=== PATIENT | female | born 1970 | race Hispanic/Latino ===

== ENCOUNTER 2018-06-27 14:23 | Emergency (ER) | payer SELFPAY ==
[~2018-06-27] VITALS: Ht 152.4 cm; Wt 90.7 kg
[~2018-06-27 14:23] MED LIST: ALLEGRA
--- OUTSIDE RECORDS SUMMARY | 2018-06-27 14:25 | XMS REPORT ---
Author Author [facility] Address Unknown Phone Unavailable Care Team Providers Care Child Welfare Caseworker Name Role Phone Unavailable Unavailable Payers Payer Name Policy Type Policy Number Effective Date Expiration Date Problems This patient has no known problems. Allergies, Adverse Reactions, Alerts Allergy Name Allergy Type Status Severity Reaction(s) Onset Date Inactive Date Treating Clinician Comments No Known Allergies DA Active U 2018-06-26 00:00:00 No Known Contrast Allergies DA Active U 2005-11-04 00:00:00 No Known Drug Allergies DA Active U 2005-11-04 00:00:00 No Known Food Allergies DA Active U 2005-11-04 00:00:00 No Known Other Allergies DA Active U 2005-11-04 00:00:00 No Known Drug Intolerances DA Active U 2001-06-26 00:00:00 Medications This patient has no known medications.
[2018-06-27] MEDS ORDERED: ULTRAM50 MG PO (17:38)
[2018-06-27] MEDS ORDERED: KETOROLAC TROME10 MG PO (17:38)
[2018-06-27] MEDS ORDERED: BACTRIM DS TAB1 EACH PO (17:38)
== END 2018-06-27 15:40 | disposition left against medical advice (07) ==
LOC: ER 14:23
DX: R10.11 Right upper quadrant pain (principal)

== ENCOUNTER 2018-06-27 16:01 | Emergency (ER) | payer OTHER ==
[~2018-06-27] VITALS: Ht 149.9 cm; Wt 130.6 kg
[2018-06-27] MEDS ORDERED: KETOROLAC TROMETHAMINE 30 MG/ML VIAL IV STA (16:23)
[2018-06-27] MEDS ORDERED: SODIUM CHLORIDE 0.9% 1000ML 1,000 ML IV SCH (16:30)
[2018-06-27] MEDS ORDERED: FENTANYL CITRATE/PF 100MCG/2 ML INJ IV ONE (16:30)
--- NOTE | 2018-06-27 17:19 | NUR ---
[facility]a givens in [facility] - 06/27/18 at 1719 by GERSON Visual Acuity completed: L Eye R Eye Both Eyes:
[2018-06-27] MEDS ORDERED: ULTRAM50 MG PO (17:38)
[2018-06-27] MEDS ORDERED: KETOROLAC TROME10 MG PO (17:38)
[2018-06-27] MEDS ORDERED: BACTRIM DS TAB1 EACH PO (17:38)
--- NOTE | 2018-06-27 17:43 | NUR ---
Fentanyl not administered. Pt states pain level is a 2/10. Fluids and Toradol administered as ordered.
--- NOTE | 2018-06-27 18:00 | Diagnostic Imaging Report ---
EXAM: Right Upper Quadrant Ultrasound INDICATION: Right upper quadrant pain. COMPARISON: None. TECHNIQUE: Transverse and longitudinal images of the right upper abdomen were obtained. FINDINGS: Examination somewhat limited due to shadowing from overlying bowel gas. Liver: Size: 14.6 cm in the right midclavicular line, normal Appearance: Increased echogenicity, smooth contour Mass: No focal masses Gallbladder: Stones/Sludge: There is a large calculus within the gallbladder lumen. There is also nonshadowing echogenic material which may represent sludge or floating gallstones. Wall: 0.2 cm Appearance: No wall thickening, pericholecystic fluid or hydrops. Sonographic Gonzalez's Sign: Negative Bile Ducts: Intrahepatic Ducts: No dilatation Extrahepatic Ducts: Common bile duct measures 0.5 cm, no dilatation Pancreas: Not well visualized due to shadowing from overlying bowel gas. Kidneys: Length: Right 9.9 cm Echogenicity: Normal Collecting System: No hydronephrosis Stone: None Cyst/Mass: None Vessels: Aorta: Visualized portions are normal Inferior Vena Cava: Visualized portions are normal Main Portal Vein: 1.1 cm, normal size with hepatopetal flow. Free Fluid: No ascites or pleural effusion IMPRESSION: 1. Cholelithiasis and gallbladder sludge. No biliary dilatation. Signed by: Dr. Siobhan Caba M.D. on 06/27/2018 5:56 PM
[2018-06-27 18:11] VITALS: BP 199/113
== END 2018-06-27 18:39 | disposition home or self-care (01) ==
LOC: FSED 16:01
DX: R10.11 Right upper quadrant pain (principal); N30.90 Cystitis, unspecified without hematuria; K80.20 Calculus of gallbladder without cholecystitis without obstruction
CPT/HCPCS: 76705; 80053; 81003; 81025; 85025; 93005; 99284; J1885; J7030

== ENCOUNTER 2018-07-19 02:18 | Emergency (ER) | payer OTHER ==
[~2018-07-19] VITALS: Ht 149.9 cm; Wt 130.6 kg
[~2018-07-19 02:18] MED LIST changes: +BACTRIM DS TAB1 EACH PO; +KETOROLAC TROME10 MG PO; +ULTRAM50 MG PO
[2018-07-19] MEDS ORDERED: KETOROLAC TROMETHAMINE 30 MG/ML VIAL IV STA (02:35)
[2018-07-19] MEDS ORDERED: ONDANSETRON HCL INJ 2MG/ML 2ML 2 MG/ML VIAL IV STA (02:35)
[2018-07-19] MEDS ORDERED: SODIUM CHLORIDE 0.9% 1000ML 1,000 ML IV ONE (02:45)
[2018-07-19] MEDS ORDERED: MORPHINE SULFATE 5 MG/ML VIAL IV ONE (03:00)
--- NOTE | 2018-07-19 04:07 | Diagnostic Imaging Report ---
EXAM: CT ABD/PEL WITH CONTRAST-HOPD DATE: 07/19/2018 12:00 AM INDICATION: Epigastric pain COMPARISON: None TECHNIQUE: The abdomen and pelvis were scanned using a multidetector helical scanner. Coronal and sagittal reformations were obtained. CT low dose techniques were utilized, as applicable. IV Contrast: 100 ml Isovue 300/370 FINDINGS: LOWER THORAX: No consolidations LIVER/BILIARY: No masses. No ductal dilatation. GALLBLADDER: Cholelithiasis, with large lamellated stone near the neck. Otherwise unremarkable. A SPLEEN: Unremarkable PANCREAS: Unremarkable ADRENALS: No nodules KIDNEYS: No suspicious renal masses. No hydronephrosis. GI TRACT: Small hiatal hernia. No wall thickening or evidence of obstruction. VESSELS: Unremarkable PERITONEUM/RETROPERITONEUM: No free air or fluid LYMPH NODES: No lymphadenopathy REPRODUCTIVE ORGANS/BLADDER: Unremarkable SOFT TISSUES: No acute findings BONES: No suspicious bone lesions. IMPRESSION: 1. No acute abnormality. 2. Small hiatal hernia. 3. Cholelithiasis, but large stone in the neck, but no CT evidence of acute cholecystitis. Signed by: Dr Mary Foley MD on 07/19/2018 4:03 AM
[2018-07-20] MEDS ORDERED: TYLENOL # 31 EA PO (05:32)
[2018-07-20] MEDS ORDERED: ONDANSETRON HCL4 MG PO (05:32)
[2018-07-20] MEDS ORDERED: D-AMPHETAMINE PO (05:32)
[2018-07-20] MEDS ORDERED: LISINOPRIL10 MG PO (05:32)
[2018-07-20] MEDS ORDERED: ASPIRIN EC81 MG PO (05:32)
== END 2018-07-19 04:32 | disposition home or self-care (01) ==
LOC: FSED 02:18
DX: R10.11 Right upper quadrant pain (principal); R11.2 Nausea with vomiting, unspecified; K80.70 Calculus of gallbladder and bile duct without cholecystitis without obstruction
CPT/HCPCS: 74177; 80053; 81003; 81025; 85025; 99284; J7030

== ENCOUNTER 2018-07-20 03:18 | Inpatient (IN) | payer OTHER ==
[~2018-07-20] VITALS: Ht 149.9 cm; Wt 130.6 kg
[2018-07-20] MEDS ORDERED: ONDANSETRON HCL INJ 2MG/ML 2ML 2 MG/ML VIAL IV STA ×2 (03:27→04:11)
[2018-07-20] MEDS ORDERED: SODIUM CHLORIDE 0.9% 1000ML 1,000 ML IV ONE ×3 (03:30→05:00)
[2018-07-20] MEDS ORDERED: DICYCLOMINE HCL 20 MG/2 ML VIAL IM ONE (03:30)
[2018-07-20] MEDS ORDERED: HYDROMORPHONE 2MG/ML 2 MG/ML ML IV ONE (03:30)
[2018-07-20 03:55] LABS: BASOPHILS # (AUTO) 0.1 (0.0-0.1); BASOPHILS % 0.3 % (0.0-1.0); EOSINOPHILS % 0.2 % (0.0-6.0); HEMATOCRIT 34.1 % (34.2-44.1); HEMOGLOBIN 9.5 g/dL (12.0-16.0); LYMPHOCYTES # (AUTO) 3.2 (1.0-3.2); LYMPHOCYTES % 19.9 % (18.0-39.1); MEAN CORPUSCULAR HEMOGLOBIN 17.9 pg (28-32); MEAN CORPUSCULAR HGB CONC 27.9 g/dL (31-35); MEAN CORPUSCULAR VOLUME 64.2 fL (81-99); MONOCYTES # (AUTO) 0.6 (0.2-0.8); MONOCYTES % 3.8 % (4.4-11.3); NEUTROPHILS # (AUTO) 12.2 (2.1-6.9); NEUTROPHILS % 75.4 % (38.7-80.0); PLATELET COUNT 463 x10e3/uL (140-360); RED BLOOD COUNT 5.31 x10e6/uL (3.6-5.1); RED CELL DISTRIBUTION WIDTH 18.8 % (11.7-14.4)
[2018-07-20 04:10] LABS: ALANINE AMINOTRANSFERASE 20 IU/L (0-55); ALBUMIN 3.5 g/dL (3.5-5.0); ALBUMIN/GLOBULIN RATIO 0.8 (0.8-2.0); ALKALINE PHOSPHATASE 123 IU/L (40-150); AMYLASE 67 U/L (25-125); ANION GAP 14.8 mmol/L (8-16); BLOOD UREA NITROGEN 7 mg/dL (7-26); BUN/CREATININE RATIO 9 (6-25); CARBON DIOXIDE 20 mmol/L (22-29); CHLORIDE 100 mmol/L (98-107); CREATINE KINASE 87 IU/L (29-168); EST GLOMERULAR FILTRATION RATE > 60 ML/MIN (60-); GLUCOSE 186 mg/dL (74-118); LIPASE 18 U/L (8-78); POTASSIUM 3.8 mmol/L (3.5-5.1); SODIUM 131 mmol/L (136-145)
[2018-07-20] MEDS ORDERED: MORPHINE SULFATE INJ 4 MG/ML INJ 1ML IV ONE (04:15)
[2018-07-20 04:26] LABS: BACTERIA,URINE MANY /HPF; BILIRUBIN,URINE NEGATIVE (NEGATIVE); CLARITY,URINE CLEAR (CLEAR); COLOR,URINE YELLOW (YELLOW); EPITHELIAL CELLS,URINE FEW /LPF; KETONES,URINE 2+ (NEGATIVE); LEUKOCYTE ESTERASE ,URINE 1+ (NEGATIVE); NITRITE,URINE NEGATIVE (NEGATIVE); PROTEIN,URINE DIPSTICK TRACE (NEGATIVE); URINE UROBILINOGEN 4 mg/dL (0.2 - 1); WBC,URINE (MAN) 21-50 /HPF (0-5)
[2018-07-20 04:27] LABS: MUCUS,URINE FEW (RARE)
[2018-07-20] MEDS ORDERED: SODIUM CHLORIDE 0.9% 1000ML 1,000 ML ONE (04:54)
[2018-07-20] MEDS ORDERED: HYDRALAZINE HCL 20 MG/ML VIAL IV PRN (05:00)
[2018-07-20] MEDS ORDERED: TYLENOL # 31 EA PO (05:32)
[2018-07-20] MEDS ORDERED: D-AMPHETAMINE PO (05:32)
[2018-07-20] MEDS ORDERED: ASPIRIN EC81 MG PO (05:32)
[2018-07-20] MEDS ORDERED: ONDANSETRON HCL4 MG PO (05:32)
[2018-07-20] MEDS ORDERED: LISINOPRIL10 MG PO (05:32)
[2018-07-20] MEDS ORDERED: PIPER-TAZ 3.375 GM / NS 50ML IV SCH ×2 (06:00→18:00)
[2018-07-20 06:08] VITALS: BP 154/84
[2018-07-20] MEDS: SODIUM CHLORIDE 0.9% 1000ML 1,000 ML IV SCH ×3 (07:00→21:20)
[2018-07-20 07:56] LABS: ANISOCYTOSIS SLIGHT; HYPOCHROMASIA MODERATE; PLATELET ESTIMATE SLIGHTLY INCREASED; PLATELET MORPHOLOGY COMMENT FEW LARGE; RBC MORPHOLOGY COMMENT NORMAL
[2018-07-20] MEDS: HYDROMORPHONE 2MG/ML 2 MG/ML ML IV PRN ×3 (08:00→19:36)
[2018-07-20] MEDS: ONDANSETRON HCL INJ 2MG/ML 2ML 2 MG/ML VIAL IV PRN ×3 (08:00→19:36)
[2018-07-20 08:02] VITALS: BP 158/87
[2018-07-20 08:11] VITALS: BP 158/87
[2018-07-20 12:08] VITALS: BP 148/89
--- NOTE | 2018-07-20 12:14 | NUR ---
pt off unit for sx at this time . consent has been signed
[2018-07-20] MEDS ORDERED: BUPIVACAINE 0.25%/EPI 30ML SDV INJ ONE (13:24)
[2018-07-20] MEDS: PANTOPRAZOLE 40 MG 10ML VIAL IV SCH (16:00)
--- NOTE | 2018-07-20 16:17 | Operative Report ---
DATE OF PROCEDURE: July 20, 2018 PREOPERATIVE DIAGNOSIS: Acute cholecystitis and cholelithiasis with gallbladder hydrops. POSTOPERATIVE DIAGNOSIS: Acute cholecystitis and cholelithiasis with gallbladder hydrops. OPERATION PERFORMED: Laparoscopic cholecystectomy. EXECUTIVE OFFICE MANAGER: Dr. Jones Dumont ANESTHESIA: General. COMPLICATIONS: None. ESTIMATED BLOOD LOSS: Minimal. DESCRIPTION OF PROCEDURE: With the patient lying in bed in the supine position under good general endotracheal anesthesia, the abdomen was prepped with Betadine solution and draped in the usual manner. A Veress needle was introduced into the right upper quadrant and pneumoperitoneum was established without any difficulty. A 5-mm trocar was placed in the right subcostal region and a 5 mm video laparoscope was placed into the intra-abdominal cavity. Under direct vision, an 11-mm trocar was placed in the umbilicus and a 10 mm video laparoscope was placed into the intra-abdominal cavity. Two more 5-mm trocars were placed in the right subcostal region. The patient at this point was found to have an acutely inflamed, thick-walled, tense gallbladder with hydrops with a large stone impacted at the neck of the gallbladder. The omentum and the duodenum was stuck to the neck of the gallbladder. All of this was slowly and carefully . An extra 5-mm trocar was then used to retract the redundant transverse colon. The perineum overlying the neck of the gallbladder was then opened and the cystic duct was identified. The cystic duct was rather short and it was doubly clipped and divided. The cystic artery was similarly doubly clipped and divided. The gallbladder was then slowly and carefully taken off of the liver bed using the cautery scissors. The entire liver bed was thick-walled and edematous representing both acute and chronic cholecystitis. The gallbladder was totally and completely removed off of the liver bed and hemostasis was ascertained. The gallbladder was then placed in a pouch and removed through the umbilical incision. Video laparoscopy was then again carried out. The liver bed was found to perfectly dry. All of the excess fluid was aspirated. The pneumoperitoneum was evacuated and all the trocars were removed under direct vision. The midline fascia at the umbilicus was then closed with a figure-of-8 of 0 Vicryl. All layers were infiltrated on the way out with a solution of 0.25% Marcaine. Subcutaneous tissue was approximated with 3-0 Vicryl and the skin was closed with subcuticular 5-0 Vicryl. Benzoin, Steri-Strips and Band-Aids were applied. The sponge, lap and needle count was correct. Patient tolerated the procedure well and returned to the recovery room in stable condition. Job#: [id number] FRANTZ
--- NOTE | 2018-07-20 16:19 | NUR ---
RECEIVED REPORT FROM [facility] IN PACU AT THIS TIME . AWAITING FOR PT TO COME TO FLOOR. PT HAD A LAP YAZMIN
[2018-07-20 16:35] VITALS: BP 98/57
--- NOTE | 2018-07-20 16:44 | NUR ---
PT BACK FROM SX [id number]. PT IS IN NO S/S OF DISTRESS. DENIES PAIN. PT ABD IS CLEAN , 5 TROCHAR SITES PRESENT DRY AND INTACT. WILL CONTINUE TO MONITOR
[2018-07-20 20:00] VITALS: BP_SYST 123; BP_SYST 128; BP_DIAS 58; BP_DIAS 68
[2018-07-20] MEDS ORDERED: MIDAZOLAM HCL 2 MG/2 ML VIAL ONE (20:13)
[2018-07-20] MEDS ORDERED: FENTANYL CITRATE/PF 100MCG/2 ML INJ ONE (20:13)
[2018-07-20] MEDS ORDERED: ACETAMINOPHEN 1000 MG/100 ML IV ONE (20:21)
[2018-07-20] MEDS ORDERED: KETOROLAC TROMETHAMINE 30 MG/ML VIAL ONE (20:21)
[2018-07-20] MEDS ORDERED: PROPOFOL IV EMULSION 10 MG/ML 20 ML VIAL ONE (20:21)
[2018-07-20] MEDS ORDERED: ROCURONIUM BROMIDE 10 MG/ML 5ML VIAL ONE (20:21)
[2018-07-20] MEDS ORDERED: NEOSTIGMINE 5 MG/5ML SYR ONE (20:21)
[2018-07-20] MEDS ORDERED: LIDOCAINE HCL 2% LOCAL INJ 5 ML SDV VIAL INJ ONE (20:21)
[2018-07-20] MEDS ORDERED: SEVOFLURANE INHAL SOLN 250 ML PEN BTL ONE (20:21)
[2018-07-20] MEDS ORDERED: GLYCOPYRROLATE INJ 1MG/ 5 ML SYR ONE (20:21)
[2018-07-20] MEDS ORDERED: ONDANSETRON HCL INJ 2MG/ML 2ML 2 MG/ML VIAL ONE (20:21)
[2018-07-20] MEDS ORDERED: PHENYLEPHRINE HCL 1% 10 MG/ML VIAL ONE (20:21)
[2018-07-20] MEDS: HYDROCODONE/APAP 7.5MG-325MG 1 EA TAB PO PRN (23:33)
[2018-07-21] VITALS (7 sets, daily range): BP systolic 108–154; BP diastolic 58–83
[2018-07-21] MEDS: PIPER-TAZ 3.375 GM / NS 50ML IV SCH ×3 (00:30→16:14)
[2018-07-21] MEDS: ONDANSETRON HCL INJ 2MG/ML 2ML 2 MG/ML VIAL IV PRN ×3 (00:37→15:40)
[2018-07-21] MEDS: HYDROMORPHONE 2MG/ML 2 MG/ML ML IV PRN ×4 (00:37→15:40)
[2018-07-21 05:41] LABS: ALANINE AMINOTRANSFERASE 37 IU/L (0-55); ALBUMIN 2.7 g/dL (3.5-5.0); ALBUMIN/GLOBULIN RATIO 0.7 (0.8-2.0); ALKALINE PHOSPHATASE 103 IU/L (40-150); AMYLASE 25 U/L (25-125); ANION GAP 11.6 mmol/L (8-16); BLOOD UREA NITROGEN 8 mg/dL (7-26); BUN/CREATININE RATIO 9 (6-25); CALCIUM 8.5 mg/dL (8.4-10.2); CARBON DIOXIDE 23 mmol/L (22-29); CHLORIDE 104 mmol/L (98-107); CREATININE, SERUM 0.86 mg/dL (0.57-1.11); EST GLOMERULAR FILTRATION RATE > 60 ML/MIN (60-); GLUCOSE 142 mg/dL (74-118); LIPASE 5 U/L (8-78); POTASSIUM 4.6 mmol/L (3.5-5.1); SODIUM 134 mmol/L (136-145)
[2018-07-21 05:44] LABS: BASOPHILS # (AUTO) 0.1 (0.0-0.1); BASOPHILS % 0.3 % (0.0-1.0); EOSINOPHILS % 0.1 % (0.0-6.0); HEMATOCRIT 28.6 % (34.2-44.1); LYMPHOCYTES # (AUTO) 2.2 (1.0-3.2); LYMPHOCYTES % 14.5 % (18.0-39.1); MEAN CORPUSCULAR VOLUME 64.4 fL (81-99); MONOCYTES # (AUTO) 0.7 (0.2-0.8); MONOCYTES % 4.8 % (4.4-11.3); NEUTROPHILS # (AUTO) 12.2 (2.1-6.9); NEUTROPHILS % 79.5 % (38.7-80.0); PLATELET COUNT 346 x10e3/uL (140-360); RED BLOOD COUNT 4.44 x10e6/uL (3.6-5.1)
[2018-07-21] MEDS: SODIUM CHLORIDE 0.9% 1000ML 1,000 ML IV SCH ×2 (05:50→15:40)
[2018-07-21] MEDS: HYDROCODONE/APAP 7.5MG-325MG 1 EA TAB PO PRN ×2 (07:57→18:00)
[2018-07-21 08:52] LABS: ANISOCYTOSIS SLIGHT; PLATELET ESTIMATE ADEQUATE; PLATELET MORPHOLOGY COMMENT NORMAL; RBC MORPHOLOGY COMMENT ABNORMAL
[2018-07-21 08:56] LABS: HYPOCHROMASIA MODERATE
[2018-07-21] MEDS ORDERED: LISINOPRIL 10 MG TAB PO SCH (09:00)
--- NOTE | 2018-07-21 09:52 | NUR ---
Patient in bed, encouraged to get up and ambulate and stated will get up later as still in some pains, pain meds have been given x2 and will monitor.
[2018-07-21] MEDS: PANTOPRAZOLE 40 MG 10ML VIAL IV SCH (15:15)
--- NOTE | 2018-07-21 17:47 | NUR ---
Rounds by surgeon and orders to discharge patient. Tolerated clear liquid diet, no N/V reported, has been OOB ambulating today and passed gas. Discharge instructions given to patient, contacts provided for f/u appointment, dietary restrictions and infection control. IV line removed with cath tip in place and dressing applied.
== END 2018-07-21 18:07 | disposition home or self-care (01) | DRG 418 ==
LOC: ER 03:18 → ERHOLD 05:00 → MED/SURG 06:28
PROVIDERS: ADMIT Surgery; ATTEND Surgery
PROC: 0FT44ZZ Resection of Gallbladder, Percutaneous Endoscopic Approach (ICD-10-PCS; principal; 2018-07-20 13:30)
DX: K80.00 Calculus of gallbladder with acute cholecystitis without obstruction (principal); Z68.43 Body mass index [BMI] 50.0-59.9, adult; E66.01 Morbid (severe) obesity due to excess calories; K21.9 Gastro-esophageal reflux disease without esophagitis
CPT/HCPCS: 36415; 80053; 81001; 82150; 82550; 82553; 82948; 83690; 84484; 84702; 85025; 88304; 93005; 96372; 96374; 99284; C1766; J0500; J1885; J2001; J2250; J2370; J2405; J2543; J7030

== ENCOUNTER 2020-04-19 04:07 | Emergency (ER) | payer OTHER ==
[~2020-04-19] VITALS: Ht 149.9 cm; Wt 73.5 kg
[~2020-04-19 04:07] MED LIST changes: +ASPIRIN EC81 MG PO; +D-AMPHETAMINE PO; +LISINOPRIL10 MG PO; +ONDANSETRON HCL4 MG PO; +TYLENOL # 31 EA PO
--- NOTE | 2020-04-19 05:21 | Diagnostic Imaging Report ---
KNEE RIGHT 3VW RT - 3 views HISTORY: Pain. Trauma COMPARISON: None available. FINDINGS: Tiny ossific density at the tibial spine. Otherwise, no acute displaced fracture or dislocation. No joint effusion. IMPRESSION: Tiny ossific density at the medial tibial spine may represent an osteophyte or sequelae of old trauma, rather than evidence of an avulsive ligamentous injury given lack of suprapatellar effusion. MRI would be helpful if there is persistent clinical concern. Otherwise, no acute displaced fracture or dislocation. Signed by: Natan Duncan MD on 04/19/2020 5:18 AM
[2020-04-19] MEDS ORDERED: PREDNISONE20 MG PO (05:45)
--- NOTE | 2020-04-19 05:46 | Emergency Department Note ---
History of Present Illnes History of Present Illness Chief Complaint: RGT KNEE PAIN S/P FALL OFF A LADDER History of Present Illness This is a 49 year old female. was doing well prior to this. Historian: Patient Arrival Mode: Car History limited by: condition of the patient (normal) [employer] Support Specialist Required: No Onset (how long ago): hour(s) (12) Location: see above Quality: sharp Radiation: Reports non-radiation Severity: moderate Onset quality: sudden Duration (how long): hour(s) (12) Timing of current episode: constant Progression: worsening Chronicity: new Context: Reports trauma/injury Relieving factors: rest Exacerbating factors: movement Associated symptoms: Reports denies other symptoms Treatments prior to arrival: none Past Medical/Family History Physician Review I have reviewed the patient's past medical and family history. Any updates have been documented here. Past Medical History Recent Fever: No Clinical Suspicion of Infectio: No New/Unexplained Change in Ment: No Past Medical History: Hypertension Other Medical History: PRE-ECLAMPSIA GERD SEASONAL/ENVIRONMENTAL ALLERGIES Past Surgical History: , Bariatric Surgery Other Surgery: Social History Smoking Cessation: Never Smoker Counseling Performed: No Alcohol Use: None Any Illegal Drug Use: No Other Last Tetanus: unk Any Pre-Existing Lines (PICC,: No Review of Systems Review of Systems Constitutional: Reports no symptoms EENTM: Reports no symptoms Cardiovascular: Reports no symptoms Respiratory: Reports no symptoms Gastrointestinal: Reports no symptoms Genitourinary: Reports no symptoms Musculoskeletal: Reports as per HPI Integumentary: Reports no symptoms Neurological: Reports no symptoms Psychological: Reports no symptoms Endocrine: Reports no symptoms Hematological/Lymphatic: Reports no symptoms Review of other systems: All other systems negative Physical Exam Related Data Allergies: Coded Allergies: No Known Allergies (Unverified , 12/05/14) Triage Vital Signs Vital Signs Date Time Temp Pulse Resp B/P (MAP) Pulse Ox O2 Delivery O2 Flow Rate FiO2 04/19/20 04:20 98.0 110 18 160/98 100 Room Air Vital signs reviewed: Yes Physical Exam CONSTITUTIONAL Constitutional: Present well-developed, Present well-nourished HENT HENT: Present normocephalic, Present atraumatic, Present oropharynx clear/moist, Present nose normal HENT L/R: Present left ext ear normal, Present right ext ear normal EYES Eyes: Reports PERRL, Reports conjunctivae normal NECK Neck: Present ROM normal PULMONARY Pulmonary: Present effort normal, Present breath sounds normal CARDIOVASCULAR Cardiovascular: Present regular rhythm, Present heart sounds normal, Present capillary refill normal, Present normal rate GASTROINTESTINAL Abdominal: Present soft, Present nontender, Present bowel sounds normal GENITOURINARY Genitourinary: Present exam deferred SKIN Skin: Present warm, Present dry MUSCULOSKELETAL Musculoskeletal: Present ROM normal, Present tenderness (rgt knee/ +nvi), Present swelling NEUROLOGICAL Neurological: Present alert, Present oriented x 3, Present no gross motor or sensory deficits PSYCHOLOGICAL Psychological: Present mood/affect normal, Present judgement normal Results Imaging Imaging results reviewed: Yes Impressions [place] [address] Patient Name: KYLAH WRIGHT MR #: [id number] : 1970 Age/Sex: 49/F Req #: [id number] Adm Physician: Ordered by: BETITO HSIEH Report #: [id number] Location: [facility] Room/Bed: ____ Procedure: [id number] HOPD/KNEE 3VW RT - HOPD Exam Date: 04/19/20 Exam Time: 0444 REPORT STATUS: Signed KNEE RIGHT 3VW RT - 3 views HISTORY: Pain. Trauma COMPARISON: None available. FINDINGS: Tiny ossific density at the tibial spine. Otherwise, no acute displaced fracture or dislocation. No joint effusion. IMPRESSION: Tiny ossific density at the medial tibial spine may represent an osteophyte or sequelae of old trauma, rather than evidence of an avulsive ligamentous injury given lack of suprapatellar effusion. MRI would be helpful if there is persistent clinical concern. Otherwise, no acute displaced fracture or dislocation. Signed by: Tata Biggs MD on 04/19/2020 5:18 AM Dictated By: TATA BIGGS MD 7 Transcribed By: ARCADIO on 04/19/20517 COPY TO: BETITO HSIEH~ Assessment & Plan Medical Decision Making MDM see below Assessment & Plan Final Impression: (1) Knee sprain Depart Disposition: HOME, SELF-CARE Last Vital Signs Date Time Temp Pulse Resp B/P (MAP) Pulse Ox O2 Delivery O2 Flow Rate FiO2 04/19/20 04:20 98.0 110 18 160/98 100 Room Air Home Meds Active Scripts Prednisone (PREDNISONE) 20 Mg Tab, 60 MG PO DAILY PRN for MODERATE PAIN (4-6), #15 TAB TAKE ALL 3 20 MG PILLS AT ONCE Prov:BETITO HSIEH 04/19/20 Reported Medications [D-Amphetamine] No Conflict Check, 20 MG PO TID 07/20/18 Aspirin (ASPIRIN EC) 81 Mg Tablet.dr, 81 MG PO DAILY 07/20/18 Lisinopril (LISINOPRIL) 10 Mg Tablet, 10 MG PO DAILY 07/20/18 Ondansetron Hcl (ONDANSETRON HCL) 4 Mg Tablet, 4 MG PO Q6H PRN for NAUSEA 07/20/18 Acetaminophen/Codeine* (TYLENOL # 3*) 1 Ea Tab, 1 TAB PO Q6H PRN for PAIN 07/20/18 BETITO HSIEH Apr 19, 2020 05:45
--- OUTSIDE RECORDS SUMMARY | 2020-04-24 18:19 | XMS REPORT | Continuity of Care Document ---
Author Author [facility] t Organization [facility] Address [address] [place] [address] Phone Unavailable Care Team Providers Care Unstacker Name Role Phone NO, PCP PCP Unavailable Yesi HSIEH Attphys Unavailable Maximilian STEARNS Attphys Unavailable Judie JOSÉ Attphys Unavailable Payers Payer Name Policy Type Policy Number Effective Date Expiration Date S ource Problems Condition Name Condition Details Condition Category Status Onset Date Resolution Date Last Treatment Date Treating Clinician Comments Source Allergic reaction Allergic reaction Problem Active [facility] Cholecystitis Cholecystitis Problem Active [facility] Urinary tract infection UTI (urinary tract infection) Problem Active [facility] Allergies, Adverse Reactions, Alerts Allergy Name Allergy Type Status Severity Reaction(s) Onset Date Inacti ve Date Treating Clinician Comments Source No Known Allergies DA Active U 2018-06-26 00:00:00 [facility] No Known Contrast Allergies DA Active U 2005-11-04 00:00: 00 [facility] No Known Drug Allergies DA Active U 2005-11-04 00:00:00 [facility] No Known Food Allergies DA Active U 2005-11-04 00:00:00 [facility] No Known Other Allergies DA Active U 2005-11-04 00:00:00 [facility] No Known Drug Intolerances DA Active U 2001-06-26 00:00:0 0 [facility] Medications Ordered Medication Name Filled Medication Name Start Date Stop Da te Current Medication? Ordering Clinician Indication Dosage Frequency Signature (SIG) Comments Components Source Ketorolac Tromethamine (Toradol) 10 Mg Tablet, 10 Mg O ral Ketorolac Tromethamine (Toradol) 10 Mg Tablet, 10 Mg Oral 2018-06-27 00:00:2018-07-20 00:00:00 Sury José Md 10 Every 8 Hours for Pain [facility] Sulfamethoxazole/Trimethoprim (Bactrim Ds Tablet) 1 Ea ch Tablet, 1 Each Oral Sulfamethoxazole/Trimethoprim (Bactrim Ds Tablet) 1 Each Tablet, 1 Each Oral 2018-06-27 00:00:00 2018-07-20 00:00:00 Sury José Md 1 Twice A Day [facility] Tramadol Hcl (Ultram) 50 Mg Tablet, 50 Mg Oral Tramado l Hcl (Ultram) 50 Mg Tablet, 50 Mg Oral 2018-06-27 00:00:2018-07-20 00:00:00 No Frank José Md 50 Every 6 Hours as needed for Abdominal Pa in [facility] Acetaminophen/Codeine Phosphate (Tylenol # 3*) 1 Ea Ta b Acetaminophen/Codeine Phosphate (Tylenol # 3*) 1 Ea Tab Yes 1 Every 6 Hours as needed for Pain [facility] Aspirin (Aspirin Ec) 81 Mg Tablet. Aspirin (Aspirin Ec) 81 Mg Tab let. Yes 81 Daily [facility] D-Amphetamine D-Amphetamine Yes 20 Three Times A Day [facility] Lisinopril 10 Mg Tablet Lisinopril 10 Mg Tablet Yes 10 Daily [facility] Ondansetron Hcl 4 Mg Tablet Ondansetron Hcl 4 Mg Tablet Yes 4 Every 6 Hours as needed for Nausea [facility] Naya , Unknown Dose Naya , Unknown Dose 2018-07-20 00:00:00 No Daily [facility] Procedures Procedure Date / Time Performed Performing Clinician Terrence e Laparoscopic cholecystectomy 2018-07-20 00:00:00 CLEM LIMON [facility] Encounters Start Date/Time End Date/Time Encounter Type Admission Type Attendi [facility] Care Department Encounter ID Source 2018-07-20 05:00:00 2018-07-21 18:07:00 Discharged Inpatient [facility] [id number] [facility] 2018-07-19 02:18:00 2018-07-19 04:32:00 Departed Emergency Room 1 SERGEI STEARNS [facility] [id number] [facility] 2018-06-27 16:01:00 2018-06-27 18:39:00 Departed Emergency Room 1 TOSHIA JOSÉ [facility] [id number] [facility] 2018-06-27 14:23:00 2018-06-27 15:40:00 Departed Emergency Room [facility] [id number] [facility] Results Test Description Test Time Test Comments Results Result Comments Source KNEE 3VW RT - HOPD 2020-04-19 04:52:00 [facility] 1970 Sex: F [place] [address] Patient Name: KYLAH WRIGHT MR #: [id number] : 1970 Age/Sex: 49/F Req #: [id number] Adm Physician: Ordered by: BETITO HSIEH Report #: [id number] Location: FS Room/Bed: Procedure: [id number] HOPD/KNEE 3VW RT - HOPD Exam Date: 04/19/20 Exam Time: 0444 REPORT STATUS: Signed KNEE RIGHT 3VW RT - 3 views HISTORY: Pain. Trauma COMPARISON: None available. FINDINGS: Tiny ossific density at the tibial spine. Otherwise, no acute displaced fracture or dislocation. No joint effusion. IMPRESSION: Tiny ossific density at the medial tibial spine may represent an osteophyte or sequelae of old trauma, rather than evidence of an avulsive ligamentous injury given lack of suprapatellar effusion. MRI would be helpful if there is persistent clinical concern. Otherwise, no acute displaced fracture or dislocation. Signed by: Tata Biggs MD on 04/19/2020 5:18 AM Dictated By: TATA BIGGS MD 7 Transcribed By: ARCADIO on 04/19/20517 COPY TO: BETITO HSIEH Platelet Estimate 2018-07-21 08:56:00 Test Item Platelet Estimate (test code = 32334-5) ADEQUATE [facility] HospitalPlatelet Morphology Dekuccc2505-76-12 08:56:00* Test Item Value Reference Range Interpretation Comments Platelet Morphology Comment (test code = 31584-1) NORMAL [facility] HospitalHypochromasia2019-02-01 08:56:00* Test Item Value Reference Range Interpretation Comments Hypochromasia (test code = 728-6) MODERATE [facility] HospitalAnisocytosis2019-02-01 08:56:00* Test Item Value Reference Range Interpretation Comments Anisocytosis (test code = 702-1) SLIGHT [facility] HospitalRed Cell Morphology Oidmogr0025-22-38 08:56:00* Test Item Value Reference Range Interpretation Comments Red Cell Morphology Comment (test code = 6742-1) ABNORMAL [facility] HospitalWhite Blood Kjfyt0094-57-11 05:50:00* Test Item Value Reference Range Interpretation Comments White Blood Count (test code = 6690-2) 15.35 4.8-10.8 H [facility] HospitalRed Blood Liszn5851-29-32 05:50:00* Test Item Value Reference Range Interpretation Comments Red Blood Count (test code = 789-8) 4.44 3.6-5.1 [facility] HospitalHemoglobin2019-02-01 05:50:00* Test Item Value Reference Range Interpretation Comments Hemoglobin (test code = 34651-2) 8.0 12.0-16.0 L [facility] HospitalHematocrit2019-02-01 05:50:00* Test Item Value Reference Range Interpretation Comments Hematocrit (test code = 4544-3) 28.6 34.2-44.1 L [facility] HospitalMean Corpuscular Rysfuy1761-83-74 05:50:00* Test Item Value Reference Range Interpretation Comments Mean Corpuscular Volume (test code = 787-2) 64.4 81-99 L [facility] HospitalMean Corpuscular Lakasibdky9097-03-51 05:50:00* Test Item Value Reference Range Interpretation Comments Mean Corpuscular Hemoglobin (test code = 785-6) 18.0 28-32 L [facility] HospitalMean Corpuscular Hemoglobin Concent 2018-07-21 05:50:00* Test Item Value Reference Range Interpretation Comments Mean Corpuscular Hemoglobin Concent (test code = 786-4) 28.0 31-35 L [facility] HospitalRed Cell Distribution Xdjhp3190-08-19 05:50:00* Test Item Value Reference Range Interpretation Comments Red Cell Distribution Width (test code = 67506-1) 19.0 11.7 -14.4 H [facility] HospitalPlatelet Siwkd1592-22-55 05:50:00* Test Item Value Reference Range Interpretation Comments Platelet Count (test code = 777-3) 346 140-360 [facility] HospitalNeutrophils (%) (Auto)2018-07-21 05:50:00 * Test Item Value Reference Range Interpretation Comments Neutrophils (%) (Auto) (test code = 04350-8) 79.5 38.7-80.0 [facility] HospitalLymphocytes (%) (Auto)2018-07-21 05:50:00 * Test Item Value Reference Range Interpretation Comments Lymphocytes (%) (Auto) (test code = 736-9) 14.5 18.0-39.1 L [facility] HospitalMonocytes (%) (Auto)2018-07-21 05:50:00* Test Item Value Reference Range Interpretation Comments Monocytes (%) (Auto) (test code = 5905-5) 4.8 4.4-11.3 [facility] HospitalEosinophils (%) (Auto)2018-07-21 05:50:00 * Test Item Value Reference Range Interpretation Comments Eosinophils (%) (Auto) (test code = 713-8) 0.1 0.0-6.0 [facility] HospitalBasophils (%) (Auto)2018-07-21 05:50:00* Test Item Value Reference Range Interpretation Comments Basophils (%) (Auto) (test code = 706-2) 0.3 0.0-1.0 [facility] HospitalIM GRANULOCYTES %2018-07-21 05:50:00* Test Item Value Reference Range Interpretation Comments IM GRANULOCYTES % (test code = IM GRANULOCYTES %) 0.8 0.0- 1.0 [facility] HospitalNeutrophils # (Auto)2018-07-21 05:50:00* Test Item Value Reference Range Interpretation Comments Neutrophils # (Auto) (test code = 751-8) 12.2 2.1-6.9 H [facility] HospitalLymphocytes # (Auto)2018-07-21 05:50:00* Test Item Value Reference Range Interpretation Comments Lymphocytes # (Auto) (test code = 31571-3) 2.2 1.0-3.2 [facility] HospitalMonocytes # (Auto)2018-07-21 05:50:00* Test Item Value Reference Range Interpretation Comments Monocytes # (Auto) (test code = 742-7) 0.7 0.2-0.8 [facility] HospitalEosinophils # (Auto)2018-07-21 05:50:00* Test Item Value Reference Range Interpretation Comments Eosinophils # (Auto) (test code = 711-2) 0.0 0.0-0.4 [facility] HospitalBasophils # (Auto)2018-07-21 05:50:00* Test Item Value Reference Range Interpretation Comments Basophils # (Auto) (test code = 704-7) 0.1 0.0-0.1 [facility] HospitalAbsolute Immature Granulocyte (auto 2018-07-21 05:50:00* Test Item Value Reference Range Interpretation Comments Absolute Immature Granulocyte (auto (josh t code = Absolute Immature Granulocyte (auto) 0.12 0-0.1 [facility] Clauz5269-51-70 05:46:00* Test Item Value Reference Range Interpretation Comments Sodium Level (test code = 2951-2) 134 136-145 L [facility] HospitalPotassium Qbcgi2130-34-63 05:46:00* Test Item Value Reference Range Interpretation Comments Potassium Level (test code = 2823-3) 4.6 3.5-5.1 [facility] HospitalChloride Mjigq4918-28-65 05:46:00* Test Item Value Reference Range Interpretation Comments Chloride Level (test code = 2075-0) 104 98-107 [facility] HospitalCarbon Dioxide Vbbmm0565-32-60 05:46:00* Test Item Value Reference Range Interpretation Comments Carbon Dioxide Level (test code = 2028-9) 23 22-29 [facility] HospitalAnion Wxk5725-72-42 05:46:00* Test Item Value Reference Range Interpretation Comments Anion Gap (test code = 91743-9) 11.6 8-16 [facility] HospitalBlood Urea Faglcohw6424-05-25 05:46:00* Test Item Value Reference Range Interpretation Comments Blood Urea Nitrogen (test code = 3094-0) 8 7-26 [facility] HospitalCreatinine2019-02-01 05:46:00* Test Item Value Reference Range Interpretation Comments Creatinine (test code = 2160-0) 0.86 0.57-1.11 [facility] HospitalBUN/Creatinine Vqsxo1824-26-78 05:46:00* Test Item Value Reference Range Interpretation Comments BUN/Creatinine Ratio (test code = 3097-3) 9 6-25 [facility] HospitalEstimat Glomerular Filtration Rate 2018-07-21 05:46:00* Test Item Value Reference Range Interpretation Comments Estimat Glomerular Filtration Rate (test code = 065579947) > 60 >60 Ranges were taken from the National Kidney Disease Education Program and the [facility] Kidney Foundation literature.Reference ranges:60 or greater: Sycrlz22-13 ( for 3 consecutive months): Chronic kidney disease 15 or less: Kidney failureMethodist Stone Oak HospitalGlucose Ixlwt1172-55-97 05:46:00* Test Item Value Reference Range Interpretation Comments Glucose Level (test code = CWE1997) 142 74-118 H [facility] HospitalCalcium Uhtdz9794-75-52 05:46:00* Test Item Value Reference Range Interpretation Comments Calcium Level (test code = 40223-7) 8.5 8.4-10.2 [facility] HospitalTotal Frspdubxf4991-70-41 05:46:00* Test Item Value Reference Range Interpretation Comments Total Bilirubin (test code = 1975-2) 1.6 0.2-1.2 H [facility] HospitalAspartate Amino Transf (AST/SGOT) 2018-07-21 05:46:00* Test Item Value Reference Range Interpretation Comments Aspartate Amino Transf (AST/SGOT) (test code = Aspartate Amino Transf (AST/SGOT)) 51 5-34 H [facility] HospitalAlanine Aminotransferase (ALT/SGPT) 2018-07-21 05:46:00* Test Item Value Reference Range Interpretation Comments Alanine Aminotransferase (ALT/SGPT) (test code = 1742-6) 37 0-55 [facility] HospitalTotal Ocyrygn5681-83-09 05:46:00* Test Item Value Reference Range Interpretation Comments Total Protein (test code = 2885-2) 6.8 6.5-8.1 [facility] HospitalAlbumin2019-02-01 05:46:00* Test Item Value Reference Range Interpretation Comments Albumin (test code = 1751-7) 2.7 3.5-5.0 L [facility] HospitalGlobulin2019-02-01 05:46:00* Test Item Value Reference Range Interpretation Comments Globulin (test code = 00984-3) 4.1 2.3-3.5 H [facility] HospitalAlbumin/Globulin Tmano6304-31-30 05:46:00 * Test Item Value Reference Range Interpretation Comments Albumin/Globulin Ratio (test code = 1759-0) 0.7 0.8-2.0 L [facility] HospitalAlkaline Cwzscaikfym9890-79-12 05:46:00* Test Item Value Reference Range Interpretation Comments Alkaline Phosphatase (test code = 6768-6) 103 40-150 [facility] HospitalAmylase Ntlrd3191-43-38 05:46:00* Test Item Value Reference Range Interpretation Comments Amylase Level (test code = 1798-8) 25 25-125 [facility] HospitalLipase2019-02-01 05:46:00* Test Item Value Reference Range Interpretation Comments Lipase (test code = 3040-3) 5 8-78 L [facility] HospitalUrine Gzigg9614-74-69 04:27:00* Test Item Value Reference Range Interpretation Comments Urine Color (test code = 5778-6) YELLOW YELLOW [facility] HospitalUrine Zhryzmq0385-55-64 04:27:00* Test Item Value Reference Range Interpretation Comments Urine Clarity (test code = 19280-0) CLEAR CLEAR [facility] HospitalUrine Specific Tmrayni0571-01-28 04:27:00 * Test Item Value Reference Range Interpretation Comments Urine Specific Humphreys (test code = 5811-5) 1.025 1.010-1.02 5 [facility] HospitalUrine iC6369-19-80 04:27:00* Test Item Value Reference Range Interpretation Comments Urine pH (test code = 06287-0) 6 5-7 [facility] HospitalUrine Leukocyte Exkjahcl0939-45-43 04:27:00* Test Item Value Reference Range Interpretation Comments Urine Leukocyte Esterase (test code = 5799-2) 1+ NEGATIVE H [facility] HospitalUrine Fetedqw6126-15-84 04:27:00* Test Item Value Reference Range Interpretation Comments Urine Nitrite (test code = 79681-9) NEGATIVE NEGATIVE [facility] HospitalUrine Lafsdze6979-25-26 04:27:00* Test Item Value Reference Range Interpretation Comments Urine Protein (test code = 5804-0) TRACE NEGATIVE H [facility] HospitalUrine Glucose (UA)2018-07-20 04:27:00* Test Item Value Reference Range Interpretation Comments Urine Glucose (UA) (test code = 2349-9) NEGATIVE NEGATIVE [facility] HospitalUrine Wwixoei3983-53-34 04:27:00* Test Item Value Reference Range Interpretation Comments Urine Ketones (test code = 96687-8) 2+ NEGATIVE H [facility] HospitalUrine Vbcxcnfcosog0893-28-36 04:27:00* Test Item Value Reference Range Interpretation Comments Urine Urobilinogen (test code = 79123-1) 4 0.2-1 H [facility] HospitalUrine Skmywgymw7441-96-98 04:27:00* Test Item Value Reference Range Interpretation Comments Urine Bilirubin (test code = 1978-6) NEGATIVE NEGATIVE [facility] HospitalUrine Byonp7704-85-24 04:27:00* Test Item Value Reference Range Interpretation Comments Urine Blood (test code = 08351-2) NEGATIVE NEGATIVE [facility] HospitalUrine KFT9755-45-31 04:27:00* Test Item Value Reference Range Interpretation Comments Urine WBC (test code = 5821-4) 21-50 0-5 H [facility] HospitalUrine MGP9861-75-99 04:27:00* Test Item Value Reference Range Interpretation Comments Urine RBC (test code = 45499-7) 6-10 0-5 H [facility] HospitalUrine Ccoutjcg3875-83-21 04:27:00* Test Item Value Reference Range Interpretation Comments Urine Bacteria (test code = 97755-5) MANY NONE H [facility] HospitalUrine Epithelial Tfezq2833-40-08 04:27:00 * Test Item Value Reference Range Interpretation Comments Urine Epithelial Cells (test code = 99172-8) FEW NONE [facility] HospitalUrine Irdlv0101-04-90 04:27:00* Test Item Value Reference Range Interpretation Comments Urine Mucus (test code = 8247-9) FEW RARE H [facility] HospitalCreatine Kinase PF0206-60-28 04:24:00* Test Item Value Reference Range Interpretation Comments Creatine Kinase MB (test code = 27259-3) 0.40 0-5.0 [facility] HospitalTroponin Y3313-42-88 04:24:00* Test Item Value Reference Range Interpretation Comments Troponin I (test code = MUA9148) < 0.001 0-0.300 [facility] HospitalCreatine Nkqirw8030-49-96 04:12:00* Test Item Value Reference Range Interpretation Comments Creatine Kinase (test code = 2157-6) 87 29-168 [facility] HospitalHuman Chorionic Gonadotropin, Qual 2018-07-20 04:01:00* Test Item Value Reference Range Interpretation Comments Human Chorionic Gonadotropin, Qual (test code = 2118-8) NEGATIVE NEGATIVE [facility] HospitalCT ABD/PEL WITH EPCBYHLN-MYMU8652-72-30 03:59:00 [facility] [address] [place] [address] Patient Name: KYLAH WRIGHT MR #: [id number] : 1970 Age/Sex: 47/F Req #: [id number] Adm Physician: Ordered by: SERGEI STEARNS MD Report #: [id number] Location: [facility] Room/Bed: Procedure: [id number] 0002 HOPD/CT ABD/PEL WITH CONTRAST-HOPD Exam Date: 07/19/18 Exam Time: 0326 REPORT STAT US: Signed EXAM: CT ABD/PEL WITH CONTRAST-HOPD DATE: 07/19/2018 12:00 AM INDICATION: Epigastric pain COMPARISON: None TECHNIQUE: The abdomen and pelvis were scanned using a multidetector helical scanner. Coronal and sagitta l reformations were obtained. CT low dose techniques were utilized, as applic able. IV Contrast: 100 ml Isovue 300/370 FINDINGS: LOWER THORAX: No co nsolidations LIVER/BILIARY: No masses. No ductal dilatation. GALLBLA DDER: Cholelithiasis, with large lamellated stone near the neck. Otherwise unr emarkable. A SPLEEN: Unremarkable PANCREAS: Unremarkable ADRENALS: No n odules KIDNEYS: No suspicious renal masses. No hydronephrosis. GI TRAC T: Small hiatal hernia. No wall thickening or evidence of obstruction. VESSELS: Unremarkable PERITONEUM/RETROPERITONEUM: No free air or fluid LYM PH NODES: No lymphadenopathy REPRODUCTIVE ORGANS/BLADDER: Unremarkable SOFT TISSUES: No acute findings BONES: No suspicious bone lesions. IMPRE SSION: 1. No acute abnormality. 2. Small hiatal hernia. 3. Cholelithias is, but large stone in the neck, but no CT evidence of acute cholecystitis. Signed by: Dr Ivone Foley MD on 07/19/2018 4:03 AM Dictated By: IVONE FOLEY MD 2 T ranscribed By: ARCADIO on 07/19/18402 COPY TO: SERGEI STEARNS MD GALL UINWNAJ-PTIT8107-91-08 17:53:00 [place] [address] Patient Name: KYLAH WRIGHT MR #: [id number] : 1970 Age/Sex: 47/F Req #: [id number] Adm Physician: Ordered by: TOSHIA JOSÉ MD Report #: [id number] Location: [facility] Room/Bed: Procedure: 8- 0009 HOPD/US GALL BLADDER-HOPD Exam Date: Exam Time : REPORT STATUS: Signed EXAM: R ight Upper Quadrant Ultrasound INDICATION: Right upper quadrant pain. COMP ARISON: None. TECHNIQUE: Transverse and longitudinal images of the right uppe r abdomen were obtained. FINDINGS: Examination somewhat limited due to shadowing from overlying bowel gas. Liver: Size: 14.6 cm in the right m idclavicular line, normal Appearance: Increased echogenicity, smooth contour Mass: No focal masses Gallbladder: Stones/Sludge: There is a large calcu nahed within the gallbladder lumen. There is also nonshadowing echogenic materia l which may represent sludge or floating gallstones. Wall: 0.2 cm Appearan ce: No wall thickening, pericholecystic fluid or hydrops. Sonographic Gonzalez 's Sign: Negative Bile Ducts: Intrahepatic Ducts: No dilatation Extrahe patic Ducts: Common bile duct measures 0.5 cm, no dilatation Pancreas: No t well visualized due to shadowing from overlying bowel gas. Kidneys: Conrad gth: Right 9.9 cm Echogenicity: Normal Collecting System: No hydronephrosis Stone: None Cyst/Mass: None Vessels: Aorta: Visual ized portions are normal Inferior Vena Cava: Visualized portions are normal Main Portal Vein: 1.1 cm, normal size with hepatopetal flow. Free Fluid: No ascites or pleural effusion IMPRESSION: 1. Cholelithiasis and gallb ladder sludge. No biliary dilatation. Signed by: Dr. Siobhan Hernandez M.D. on 06/27/2018 5:56 PM Dictated By: WONG HERNANDEZ MD, MD [facility] Signed By: WONG HERNANDEZ MD, MD on 06/27/18 1756 Transcribed By: ARCADIO on 0 06/27/18 1756 COPY TO: TOSHIA JOSÉ MD
== END 2020-04-19 06:15 | disposition home or self-care (01) ==
LOC: FSED 05:03
DX: M25.561 Pain in right knee (principal); S83.91XA Sprain of unspecified site of right knee, initial encounter; I10 Essential (primary) hypertension; K21.9 Gastro-esophageal reflux disease without esophagitis
CPT/HCPCS: 81025; 99283

== ENCOUNTER 2020-08-14 22:46 | Emergency (ER) | payer OTHER ==
[~2020-08-14] VITALS: Ht 149.9 cm; Wt 68.0 kg
[~2020-08-14 22:46] MED LIST changes: +PREDNISONE20 MG PO
[2020-08-14] MEDS ORDERED: SODIUM CHLORIDE FLUSH 10 ML SYR INJ PRN (23:00)
[2020-08-14] MEDS ORDERED: ACETAMINOPHEN 325 MG TAB ONE (23:21)
[2020-08-14] MEDS ORDERED: SODIUM CHLORIDE 0.9% 1000ML 1,000 ML IV STA ×2 (23:35)
[2020-08-14] MEDS ORDERED: CEFEPIME HCL 2 GM VIAL IV STA (23:35)
[2020-08-14] MEDS ORDERED: VANCOMYCIN 1GM/NS 250 ML 250 ML IV ONE (23:45)
[2020-08-14] MEDS ORDERED: ACETAMINOPHEN 325 MG TAB PO ONE (23:45)
[2020-08-15] MEDS ORDERED: ONDANSETRON HCL INJ 2MG/ML 2ML 2 MG/ML VIAL IV STA
[2020-08-15] MEDS ORDERED: PIPER-TAZ 3.375 GM 50 ML IV ONE
[2020-08-15] MEDS ORDERED: METHYLPREDNISOLONE SOD SUCC 125 MG/2ML VIAL IV ONE (00:45)
[2020-08-15] MEDS ORDERED: VANCOMYCIN 1GM/NS 250 ML 0 ML ONE (00:48)
[2020-08-15] MEDS ORDERED: SODIUM CHLORIDE 0.9% 1000ML 2,000 ML ONE (00:48)
[2020-08-15] MEDS ORDERED: CEFEPIME 1GM/NS 0.9% 50 ML 100 ML IV ONE (00:49)
[2020-08-15] MEDS ORDERED: PIPER-TAZ 3.375 GM 50 ML ONE (01:37)
[2020-08-15] MEDS ORDERED: METHYLPREDNISOLONE SOD SUCC 125 MG/2ML VIAL ONE (01:37)
[2020-08-15] MEDS ORDERED: ONDANSETRON HCL INJ 2MG/ML 2ML 2 MG/ML VIAL ONE (01:37)
[2020-08-15] MEDS ORDERED: ONDANSETRON ODT4 MG PO (02:24)
[2020-08-15] MEDS ORDERED: LOMOTIL TABLET1 EACH PO (02:24)
[2020-08-15] MEDS ORDERED: AZITHROMYCIN500 MG PO (02:24)
[2020-08-15] MEDS ORDERED: PREDNISONE20 MG PO (02:24)
[2020-08-15] MEDS ORDERED: CEFDINIR300 MG PO (02:24)
[2020-08-15] MEDS ORDERED: SODIUM CHLORIDE 0.9% 50ML 50 ML ONE (02:26)
[2020-08-15] MEDS ORDERED: IOPAMIDOL 370 MG/ML 200 ML INFUS..BTL INJ ONE (02:26)
[2020-08-15] MEDS ORDERED: PRILOSEC OTC20 MG PO (02:27)
[2020-08-15 03:35] VITALS: BP 128/65
== END 2020-08-15 03:35 | disposition home or self-care (01) ==
LOC: FSED 23:00
DX: R10.32 Left lower quadrant pain (principal); K52.9 Noninfective gastroenteritis and colitis, unspecified; R11.2 Nausea with vomiting, unspecified; R07.89 Other chest pain; J20.9 Acute bronchitis, unspecified; J02.0 Streptococcal pharyngitis; N39.0 Urinary tract infection, site not specified; E86.0 Dehydration; K20.90 Esophagitis, unspecified without bleeding; K21.9 Gastro-esophageal reflux disease without esophagitis; R94.31 Abnormal electrocardiogram [ECG] [EKG]
CPT/HCPCS: 70450; 71260; 74177; 80048; 80076; 81003; 81025; 82553; 83518; 83880; 84484; 85025; 85379; 87040; 87400; 93005; 96374; 96376; 99284; J0692; J2405; J2543; J2930; J7030; Q9967; J3370

== ENCOUNTER 2022-02-11 19:00 | Emergency (ER) | payer OTHER ==
[~2022-02-11] VITALS: Ht 149.9 cm; Wt 59.4 kg
[~2022-02-11 19:00] MED LIST changes: +AZITHROMYCIN500 MG PO; +CEFDINIR300 MG PO; +LOMOTIL TABLET1 EACH PO; +ONDANSETRON ODT4 MG PO; +PRILOSEC OTC20 MG PO
[2022-02-11] MEDS ORDERED: HYDROCODONE/APAP 5MG-325MG TAB PO ONE (19:45)
[2022-02-11] MEDS ORDERED: HYDROCODONE/APAP 5MG-325MG TAB ONE (20:28)
[2022-02-11] MEDS ORDERED: FIORICET 50-301 EACH PO (20:35)
[2022-02-11 20:55] VITALS: BP 178/89
== END 2022-02-11 20:55 | disposition home or self-care (01) ==
LOC: FSED 19:03
DX: R51.9 Headache, unspecified (principal); K21.9 Gastro-esophageal reflux disease without esophagitis; Z98.84 Bariatric surgery status
CPT/HCPCS: 70450; 99283

== ENCOUNTER 2022-02-26 15:16 | Emergency (ER) | payer OTHER ==
[~2022-02-26] VITALS: Ht 149.9 cm; Wt 59.4 kg
[~2022-02-26 15:16] MED LIST changes: +FIORICET 50-301 EACH PO
[2022-02-26] MEDS ORDERED: SODIUM CHLORIDE 0.9% 1000ML 1,000 ML IV ONE (16:15)
[2022-02-26] MEDS ORDERED: METOCLOPRAMIDE HCL 10 MG/2ML VIAL IV ONE (16:15)
[2022-02-26] MEDS ORDERED: ACETAMINOPHEN 325 MG TAB PO ONE (16:15)
[2022-02-26] MEDS ORDERED: DIPHENHYDRAMINE HCL INJ 50 MG/ML VIAL IV ONE (16:15)
[2022-02-26 16:32] LABS: BASOPHILS # (AUTO) 0.1 (0.0-0.1); BASOPHILS % 0.7 % (0.0-1.0); EOSINOPHILS # (AUTO) 0.1 (0.0-0.4); EOSINOPHILS % 0.9 % (0.0-6.0); HEMATOCRIT 37.1 % (34.2-44.1); LYMPHOCYTES # (AUTO) 1.8 (1.0-3.2); LYMPHOCYTES % 26.4 % (18.0-39.1); MEAN CORPUSCULAR HEMOGLOBIN 22.4 pg (28-32); MEAN CORPUSCULAR HGB CONC 29.6 g/dL (31-35); MEAN CORPUSCULAR VOLUME 75.7 fL (81-99); MONOCYTES # (AUTO) 0.4 (0.2-0.8); MONOCYTES % 5.8 % (4.4-11.3); NEUTROPHILS # (AUTO) 4.6 (2.1-6.9); NEUTROPHILS % 66.1 % (38.7-80.0); PLATELET COUNT 309 x10e3/uL (140-360); RED CELL DISTRIBUTION WIDTH 15.2 % (11.7-14.4)
[2022-02-26 17:00] LABS: ALBUMIN 3.8 g/dL (3.5-5.0); ALBUMIN/GLOBULIN RATIO 0.9 (0.8-2.0); ANION GAP 13.3 mmol/L (8-16); CALCIUM 9.6 mg/dL (8.4-10.2); CREATININE, SERUM 0.7 mg/dL (0.57-1.11); POTASSIUM 4.3 mmol/L (3.5-5.1)
[2022-02-26] MEDS ORDERED: KETOROLAC TROMETHAMINE 30 MG/ML VIAL IV STA (17:08)
[2022-02-26] MEDS ORDERED: FIORICET 50-301 EACH PO (17:48)
[2022-02-26 18:07] VITALS: BP 126/72
== END 2022-02-26 18:10 | disposition home or self-care (01) ==
LOC: ER 15:27
DX: R51.9 Headache, unspecified (principal); K21.9 Gastro-esophageal reflux disease without esophagitis; F41.9 Anxiety disorder, unspecified; Z98.84 Bariatric surgery status
CPT/HCPCS: 36415; 70450; 80053; 84702; 85025; 99283; J1200; J1885; J2765; J7030

== ENCOUNTER 2022-11-10 22:34 | Emergency (ER) | payer OTHER ==
[~2022-11-10] VITALS: Ht 149.9 cm; Wt 54.9 kg
[2022-11-10 22:59] VITALS: O2SAT 99
[2022-11-10] MEDS ORDERED: ZITHROMAX250 MG PO (23:40)
[2022-11-10] MEDS ORDERED: CORTISPORIN-TC10 M1 LEFT EAR (23:43)
[2022-11-10] MEDS ORDERED: FLONASE ALLERG9.9 ML INH (23:45)
== END 2022-11-10 23:57 | disposition home or self-care (01) ==
LOC: FSED 22:45
DX: H65.92 Unspecified nonsuppurative otitis media, left ear (principal); H69.92 Unspecified Eustachian tube disorder, left ear; K21.9 Gastro-esophageal reflux disease without esophagitis; F41.9 Anxiety disorder, unspecified
CPT/HCPCS: 99282